=== PATIENT | female | born 1965 | race Native Hawaiian/Other Pacific Islander ===

== ENCOUNTER 2016-12-14 09:48 | Day surgery (SDC) | payer OTHER ==
[~2016-12-14] VITALS: Ht 170.2 cm; Wt 78.9 kg
[2016-12-14] VITALS (11 sets, daily range): BP systolic 108–127; BP diastolic 55–75; PULSE 92–111; RESP 11–17; O2SAT 97–100
--- NOTE | 2016-12-14 07:55 | PCM.HPANE ---
Patient Data Surgeon Admitting Provider: Attending Provider:Haroon Andrews MD Primary Care Physician:Sanchez Villanueva DO Other Provider:[facility] Anesthesia Reason for Visit Right Breast Cancer Ht/WT & BMI Height (Feet): 5 Height (Inches): 6.25 Weight (Kilograms): 80.286 Body Mass Index 28.00 Allergies Coded Allergies: adhesive tape (Verified Adverse Reaction, Severe, SWELLING,ULCERATIONS, 08/18) Past Anesthesia History Anesthesia History: Denies:: Abnormal Airway, Anesthesia Reactions, Difficult Intubation, Malignant Hyperthermia Diabetes History Hx Diabetes?: No MRSA MRSA: No Medications Hypertension Medication: No Home Meds Incl Beta Jessica: No Discontinued Reported Medications Maday Root (Maday)250 Mg Capsule1,000 Mg PO DAILY 09/12/16 Turmeric Root Extract (Turmeric)500 Mg Ngmzhst159 Mg PO DAILY 07/02/16 Lactobacillus Acidophilus (Probiotic)1 Each Capsule1 Each PO DAILY 07/02/16 Pyridoxine (Vitamin B-6)50 Mg Tusdmx039 Mg PO DAILYWD 07/02/16 History History of ENT Problems?: No Hx of Heart Problems?: No Cardiovascular History: Denies:: Congestive Heart Failure Heart Murmur Hypertension Hx of Respiratory Problem?: No Respiratory History: Denies:: Asthma Cough Dyspnea Oxygen Administration Pneumonia Tuberculosis Use of C-PAP Machine Hx Neurologic Problems?: Yes Neurological History: Positive for:: Headaches Denies:: CVA Multiple Sclerosis Parkinson's Disease Seizures Hx of GI Problems?: Yes Gastrointestinal History: Positive for:: Rectal Bleeding (recent heme positive stool;PT DECLINED F/U @ THIS TIME) Hx of Problems?: No Genitourinary History: Denies:: Kidney Stones Urinary Tract Infection Female Hx: Positive for:: Problems with Breasts? (S/P RT BREAST BX,PORT RT BREAST CA=-CURRENT PROBLEM) Denies:: Currently (S/P C/S, ELECTIVE TERMINATION) Pelvic Inflammatory (HPV+) Skin History: Denies:: History Skin Disorders? Pressure Ulcers Hx Musculoskeletal Problems?: Yes Musculoskeletal History: Positive for:: Back Injury Musculoskeletal Trauma (S/P ORIF RT RADIUS/ULNA) Hx of Psycho/Social Problems?: No Hx Surgeries?: Yes (back, c section, ORIF right forearm,RT BREAST BX,ELEC. TERMINATION) Hx Any Other Health Problems?: Yes Other History: Positive for:: Cancer (right breast) Denies:: Endocrine Disease Hospitalization Thyroid Disease Hx Diabetes: No Hx Alcohol Use: Yes (RARELY)Hx Substance Use: No Smoking Status: Never Smoker Have You Smoked inLast 12 mo: No Stop/Bang Treated for Sleep Apnea?: No Do You Have a CPAP Machine?: No S-Snoring: Do You Snore Loudly: No T-Tired: feel tired, fatigued: No O-Obsered: Observed not breath: No P-Blood Pressure: treated: No B- Body Mass Index > 35 kg/m2: No A- Age over 50: Yes N- Neck Large Circumference: No G- Gender Male: No AXEL Total Score: 1 AXEL Risk Assessment: Low Risk, <3 Yes Risk Assessment Category Category 1A: Patient has history of documented sleep apnea, and HAS NOT received any narcotic, sedative or anesthesia administration during this stay. Category 1B: Patient has history of documented sleep apnea, and HAS received any narcotic , sedative or anesthesia administration during this stay Category 2: Patient has SUSPECTED Obstructive Sleep Apnea, and HAS received any narcotic , sedative or anesthesia administration during this stay. Category 3: Patient has SUSPECTED Obstructive Sleep Apnea and HAS NOT received narcotic, sedative or anesthesia administration during this stay. Category 4: Outpatient in Procedural Areas with known sleep apnea or who screen positive for High Risk via the STOP/BANG questionnaire. Exam Exam General Appearance: Alert, Oriented X3, Cooperative, No Acute Distress HEENT/AIRWAY: MP 2 Lungs: Clear to Auscultation, Normal Air Movement Heart: Exam Unremarkable, Regular Rate/Rhythm, No Murmurs/Rubs/Gallops Plan Impression Patient chart reviewed, patient interviewed and anesthestic plan with risks, benefits, and alternatives discussed, and informed consent obtained. NPO Status: 06/11 2100 ASA Physical Status: ASA2 Mod Systemic Disease Anesthetic Plan: GA Bene/Risks/Altern/Consents: Yes HP Complete Prior to Induction: Yes Chip Key MD Dec 14, 2016 07:55
[~2016-12-14 09:48] MED LIST: CeFAZolin Inj 2 GM in IV Premix 1 EACH IV ONE
[2016-12-14] MEDS ORDERED: fentaNYL-PF 50 mCg/mL 2 mL Inj ONE (09:49)
[2016-12-14] MEDS ORDERED: Dexamethasone 4 mg/mL Inj ONE (09:49)
[2016-12-14] MEDS ORDERED: Propofol 10,000 mCg/mL 20 mL Inj ONE (09:49)
[2016-12-14] MEDS ORDERED: Ketamine 10 mg/mL 20 mL Inj ONE (09:49)
[2016-12-14] MEDS ORDERED: Ondansetron 2 mg/mL 2 mL Inj ONE (09:49)
[2016-12-14] MEDS ORDERED: CeFAZolin Inj 2 gm / 50mL D5W IV ONE (10:41)
[2016-12-14] MEDS: Lactated Ringer's 1,000 ML IV SCH ×2 (11:06→14:34)
--- NOTE | 2016-12-14 14:10 | DRSVH ---
PROCEDURE: NM SENTINEL NODE INJECTION ONLY, RIGHT BREAST RADIOPHARMACEUTICAL: 0.5 mCi Millipore filtered Tc-99m sulfur colloid. INDICATIONS: right breast cancer PROCEDURE: The indications, alternatives, benefits, risks, and complications of the procedure were explained to the patient. Written informed consent was obtained and placed in the chart. The area around the nip ple was prepped and draped in a sterile fashion. Tc-99m sulfur colloid was injected in the outer edg e of the areola in the right breast. No image was obtained. IMPRESSION: Administration of radiotracer into the right breast periareolar region for intra-operati ve sentinel lymph node localization. Dictated by: Vincent John M.D. on 12/14/2016 at 14:07 Approved by: Vincent John M.D. on 12/14/2016 at 14:08
[2016-12-14] MEDS ORDERED: Bupivacaine 0.5%/EPI 50 mL Inj INFILTRATE ONE (15:08)
[2016-12-14] MEDS ORDERED: Lactated Ringer's 1,000 ML IV SCH (15:42)
[2016-12-14] MEDS ORDERED: Lactated Ringer's 500 ML IV PRN (15:42)
[2016-12-14] MEDS ORDERED: Ondansetron 2 mg/mL 2 mL Inj IVPUSH PRN ×2 (15:45→17:15)
[2016-12-14] MEDS ORDERED: EPHEDrine Sulfate 50 mg/mL Inj IVPUSH PRN (15:45)
[2016-12-14] MEDS ORDERED: Phenylephrine 10,000 mCg/mL Inj IVPUSH PRN (15:45)
[2016-12-14] MEDS ORDERED: Dexamethasone 4 mg/mL Inj IVPUSH PRN (15:45)
[2016-12-14] MEDS ORDERED: MetoCLOpramide 5 mg/mL 2 mL Inj IVPUSH PRN ×2 (15:45→17:15)
--- NOTE | 2016-12-14 16:41 | DRSVH ---
PROCEDURE: X-RAY BREAST SPECIMEN ([id number]) INDICATIONS: BREAST SPECIMEN TECHNIQUE: Intraoperative film of the breast surgical specimen acquired. COMPARISON: [facility], POST BIOPSY CLIP PLACEMENT, 05/16/2016, 9:48. [facility] , STEREO BREAST BIOPSY W/CLIP PLACEMENT, 05/18/2016, 14:42. [facility], WIRE LOC INITIAL W/ MAMMO GUIDANCE RT, 12/14/2016, 9:02. FINDINGS: 2 views of the surgical specimen demonstrates the 2 localization wires as well as the 2 targeted biop sy clips. A few small microcalcifications are also demonstrated within the specimen. IMPRESSION: 1. Biopsy specimen contains the 2 localization wires as well as the 2 targeted biopsy clips. Dictated by: Connor Ford M.D. on 12/14/2016 at 16:33 Approved by: Connor Ford M.D. on 12/14/2016 at 16:35
--- NOTE | 2016-12-14 17:14 | PCM.DISURG ---
Surgical Discharge Instruction Date of Service Dec 14, 2016 Dates of Hospitalization Date of Hospital Admission Providers Admitting Physician: Primary Care Physician: Sanchez Villanueva DO Attending Physician: Haroon Andrews MD Discharge Diagnosis Discharge Diagnosis Right breast cancer Diet Discharge Diet: No restrictions Activity Discharge Activity-General: No restrictions, Activity as pain allows Dressing and Incisional Care Dressing Instructions: Dermabond will peel off gradually Hygiene: May shower Follow Up Plan Follow Up Plan With Dr. Andrews in surgery clinic in 2 weeks. Call your provider for: Fever (over 101.5), Discharge @ incision, pus discharge Haroon Andrews MD Dec 14, 2016 17:14
[2016-12-14] MEDS ORDERED: oxyCODONE-Acetamin 5-325 mg Tablet PO PRN (17:15)
[2016-12-14] MEDS: HYDROmorphone 1 mg/mL Inj IVPUSH PRN ×2 (17:20→17:25)
[2016-12-14] MEDS: fentaNYL-PF 50 mCg/mL 2 mL Inj IVPUSH PRN ×2 (17:24→17:31)
--- NOTE | 2016-12-14 17:27 | PCM.SURGOP ---
Surgical Operative Report Date of Service: Dec 14, 2016 Pre Operative Diagnosis Right breast cancer Post Operative Diagnosis Same Procedure: Wire localized right breast quadrantectomy with racquet mastopexy, right axillary sentinel lymph node biopsy, adjacent tissue rearrangement less than 30 cm Surgeon and Taxi Truck Driver: Surgeon: Haroon Andrews MD Assistants: Phoebe Black PA-C Indication for Procedure 51-year-old woman who was diagnosed in May 2016 with clinical T2 N1 right breast invasive ductal carcinoma. Her original imaging studies showed that the majority of the right lateral breast was involved. She underwent a total of 3 biopsies at the outset of her treatment. 2 of the biopsies showed the invasive cancer, and the third biopsy showed a blood clot, but no breast tissue, so the third clip in the breast did not correspond to a known cancer. She was treated with neoadjuvant chemotherapy with a good clinical response. Her repeat breast MRI showed that the prior clumped enhancement in the lower outer quadrant of the right breast had resolved. Clumped enhancement in the upper outer quadrant of the right breast was improved but still present. After discussion of risks and benefits, she agreed to proceed with right breast quadrantectomy with racquet mastopexy and sentinel lymph node biopsy. Findings: There were 3 sentinel nodes. The first sentinel node had an ex vivo gamma count of 1899, the second sentinel node had a count of 2268, and the third sentinel node had a count of 154. The background count was 7. Procedure Details Preoperatively, the patient underwent 2 separate wire placements in the [facility]. The third clip was not localized, again because it did not correspond to known tumor. She then underwent right breast injection of the radiotracer for sentinel node identification. She was brought to the operating room where she underwent smooth induction of general anesthesia. Methylene blue was injected into the right breast periareolar subdermal tissue. The breast was massaged for several minutes. She was then prepped and draped in wide sterile fashion. A procedural pause was performed according to the SCOAP checklist, and all were found to be in agreement. The nipple was sized at 50. A skin incision was drawn for racquet mastopexy with both lateral wires been encompassed into the triangular lateral excision. The incision extended to the areolar border, and then a circular incision was made around the areola. Skin flaps were raised superiorly and inferiorly. Dissection was then carried down to the chest wall with electrocautery. The entire upper outer quadrant of the right breast was excised. The breast tissue was then elevated off the underlying chest wall, and pectoralis fascia was resected en bloc. The right breast tissue was oriented with suture. A specimen radiograph was obtained, confirming that both wires and both clips had been localized successfully. The tissue was sent for permanent pathology. Margins of dissection were marked with medium hemoclips around the borders of the cavity. Right axillary sentinel lymph node biopsy was then performed through the same incision. The axillary fascia was incised. Using the gamma probe as a guide, the various areas of maximum radiotracer activity were identified, and dissected free from the surrounding tissue. The first 2 sentinel nodes had radiotracer signal, as well as methylene blue dye uptake. The first sentinel node had a count of 1899. The second sentinel node had a count of 2268. There was a third node with discrete radiotracer activity adjacent to that tissue, but it did not have blue dye uptake. Ex vivo, its count was 154. The background count after excision was 3. All 3 of the sentinel nodes were soft, and normal in size. They were sent for permanent pathology. Next, breast parenchymal flaps were elevated from the right superior breast in the right inferior breast by grasping the breast tissue with Bruce clamps and elevating it off the underlying chest wall. This was done until the breast parenchymal flaps were able to be reapproximated in the new upper outer quadrant. The breast tissue was closed with interrupted 3-0 Vicryl sutures in layers. This resulted in excellent filling of the upper outer quadrant contour defect. Volume of adjacent tissue transfer was approximately 30 cm. Next, a separate circular incision was made around the prior areolar skin incision to allow repositioning of the areolar complex central over the breast mound. That skin was excised by de-epithelializing with a 10 blade scalpel, and the skin was sent for permanent pathology. A running subdermal 4- 0 Supramid suture was then used around the new circular periareolar incision, to resize the nipple to a 50 size. The nipple remained well-perfused. The skin incision was then closed using interrupted deep dermal 3-0 Vicryl suture, and running 4-0 Vicryl subcuticular stitch. Dermabond was applied to the skin as a dressing. At the end the case all needle and sponge counts were correct 2. The patient was awakened from anesthesia without difficulty, and taken to the recovery room in satisfactory condition, having tolerated the procedure well. Complications There were no periprocedural complications identified. Surgical Specimen Removed: Yes Specimen sent to Pathology: Yes Surgical Specimen description: Right breast tissue. Right axillary sentinel node #1. Right axilla sentinel node #2. Right axillary sentinel node #3. Right breast periareolar skin. Anesthetic Plan: GA Grafts, Implants: None Output, Estimated Blood Loss: 50 Blood Administration during grigsby: No Drains: None Catheters: None copies to: Hunter May MD; Krishna Villanueva DO; Sanchez Villanueva Joshua D MD Dec 14, 2016 17:27
--- NOTE | 2016-12-15 10:38 | PCM.ANEP2 ---
Post Anesthesia Evaluation ASA/CMS Post Anesthesia VS in Patient's Normal Range?: Yes Resp Stable; Airway Patent?: Yes CV Function & Hydration Stable: Yes Mental Status Recovered?: Yes Pain control Satisfactory?: Yes N/V Control Satisfactory?: Yes Chip Key MD Dec 15, 2016 10:38
--- NOTE | 2016-12-15 10:38 | PCM.ANEP1 ---
Post Anesthesia Phase 1 PACU Phase 1 Assessment Date of Service: Dec 14, 2016 Anesthetic Administered: GA Level of Alertness: Awake, talking DOHERTY's with Equal Strength: Yes Pain: No Nausea or Vomiting: No Oxygen Delivery: Simple Mask Lungs: Clear to Auscultation, Normal Air Movement Chip Key MD Dec 15, 2016 10:38
--- NOTE | 2016-12-21 15:15 | PATH ---
SURGICAL PATHOLOGY Attending Physician:Neo Watts CASE STATUS: Signed Out PATIENT NAME: NOE CHAMBERS PID: [id number] : 1965 DATE COLLECTED:12/14/2016 00:00 SPECIMEN: 1: Breast, Simple Mastectomy (lymph nodes submitted separately) 2: [place] Lymph Node 3: [place] Lymph Node 4: [place] Lymph Node 5: Skin, biopsy CLINICAL HISTORY: RIGHT BREAST CANCER 1). RIGHT BREAST TISSUE UPPER OUTER QUADRANT, SHORT SUPERIOR, LONG LATERAL OUT 15:35 TIF 15:41 2). RIGHT AXILLARY SENTINEL NODE #1 OUT 15:50 TIF 16:23 3). RIGHT AXILLARY SENTINEL NODE #2 OUT 16:00 TIF 16:23 4). RIGHT AXILLARY SENTINEL NODE #3 OUT 16:18 TIF 16:23 5). RIGHT BREAST MORGAN-AREOLAR SKIN OUT 16:30 TIF 16:32 FINAL DIAGNOSIS: Breast, Right, Upper Outer Quadrantectomy with guidewire localization: Invasive mammary carcinoma present as two masses with the following characteristics: Mass 1 Tumor size: 18 mm Tumor type: Infiltrating ductal carcinoma. Histologic grade: Intermediate grade. [place] grade: 2 of 3 Tubule score: 3 Nuclear score: 2 Mitotic score. 1 Resection margins: Negative for tumor. Anterior: Greater than 10 mm Posterior: 5 mm Lateral: Greater than 10 mm Medial: Greater than 10 mm Superior: Greater than 10 mm Inferior: Greater than 10 mm Mass 2 Tumor size: 4 mm Tumor type: Infiltrating ductal carcinoma. Histologic grade: Intermediate grade. [place] grade: 2 of 3 Tubule score: 3 Nuclear score: 2 Mitotic score. 1 Resection margins: Negative for tumor. Anterior: Greater than 10 mm Posterior: 8 mm Lateral: Greater than 10 mm Medial: Greater than 10 mm Superior: Greater than 10 mm Inferior: Greater than 10 mm In situ carcinoma: Diffusely present throughout a region that measures 7.5 x 5.5 x 2.5 cm, solid type with lobular involvement, nuclear grade 2 of 3, no necrosis identified. Resection margins for in situ carcinoma: Negative for tumor, but close at the medial and posterior margins. Anterior: 5 mm Posterior: less than 1 mm Lateral: Greater than 10 mm Medial: less than 1 mm Superior: Greater than 10 mm Inferior: Greater than 10 mm Lymphovascular invasion: Not identified. Hormone receptor studies: Performed on this patient's previous image-guided needle core biopsies and demonstrate the following by written report: ([facility] [id number]; 05/16/2016): ER: Positive (90% of tumor nuclei, intermediate to strong staining intensity). [place]: Positive (80-90% of tumor nuclei, intermediate to strong staining intensity). HER2: Negative at 1+. ([facility] [id number]; 05/18/2016): ER: Positive (95% of tumor nuclei, strong staining intensity). [place]: Positive (95% of tumor nuclei, strong staining intensity). HER2: Negative by FISH. Additional findings: Changes consistent with previous instrumentation; fibroadenomatous and fibrocystic changes Lymph nodes: [place] lymph nodes submitted (please see parts 2, 3, and 4, below). Number of positive lymph nodes: 0 Total number of lymph nodes examined: 3 Number of sentinel nodes: 3 AJCC (7th Edition) Classification: ypT1c (2) pN0(i-) Surgical procedure: Wire localized quadrantectomy Lymph node sampling: Performed Laterality. Right 2. Right Axillary [place] Node #1, Excision: One lymph node negative for metastatic carcinoma by immunohistochemistry studies (0/1). 3. Right Axillary [place] Node #2, Excision: One lymph node negative for metastatic carcinoma by immunohistochemistry studies (0/1). 4. Right Axillary [place] Node #3, Excision: One lymph node negative for metastatic carcinoma by immunohistochemistry studies (0/1). 5. Right Breast Periareolar Skin, Excision: Negative for tumor. ICD10: C50.9 NOTE: The neoplasms are immunopositive for cytokeratin (LILIA) and E-cadherin (the larger tumor is also immunopositive for ROYAL-3) which supports a diagnosis of infiltrating ductal carcinoma and mitigates against a diagnosis of lobular carcinoma. Other regions concerning for possible microinvasion are immunopositive for both p63 and smooth muscle myosin which supports the absence of invasion at these foci. Cytokeratin studies are negative in the three excised sentinel lymph nodes. IHC tissue controls stained appropriately. Slides from this case have been reviewed by a second pathologist. GROSS DESCRIPTION: The specimens are received in formalin, labeled with the patient's name, and sublabeled as the following: (1) right breast tissue, upper outer quadrant; (2) right axillary sentinel node #1; (3) right axillary sentinel node #2; (4) right axillary sentinel node #3; (5) right breast periareolar skin. (1) The specimen consists of a piece of right breast tissue (3.5 cm AP, 9.5 cm SI, 12.3 cm ML) partially covered by skin (up to 3.0 cm SI, up to 9.2 cm ML). The specimen is oriented with 2 black sutures (short-superior, long-lateral). 2 localization wires are present. The specimen is serially sectioned ML into 32 slices within medial and lateral resection margin is a slices #1 and #32 respectively. The breast tissue is fatty and contains an ill-defined fibrous gritty area (7.5 x 5.5 x 2.5 cm) within slices #2-#22. This area is 1.8 cm from the skin surface, 0.8 cm from the posterior, 3.0 cm from the superior, 1.2 cm from the inferior, 0.3 cm from the medial, and 3.8 cm from the lateral resection margins. No nodules, masses or scirrhous areas are identified. The skin is savage-white and unremarkable. Ink code: purple-anterior; yellow-posterior; black-superior; orange-inferior; green-medial; blue-lateral. Section code: (1A) medial resection margin, perpendicularly sectioned, entirely submitted; (1B) slice #2, service liaison representative; (1C) slice #3, service liaison representative; (1D) slice #4, service liaison representative; (1E) slice #5, service liaison representative; (1F) slice #6, service liaison representative; (1G) slice #7, service liaison representative; (1H-1I) slice #8, service liaison representative submitted SI; (1J-1K) slice #9, service liaison representative submitted SI; (1L-1Q) slice #10, entirely submitted; (1R-1S) slice #11, service liaison representative submitted SI; (1T) slice #12, service liaison representative; (1U-1V) slice #13, service liaison representative submitted SI; (1W, 1X) slice #14, service liaison representative submitted SI; (1Y-1Z) slice #15, service liaison representative submitted SI; (1AA) slice #16, service liaison representative; (1BB-1CC) slice #17, service liaison representative submitted AP; (1DD-1EE) slice #18, service liaison representative submitted AP; (1FF) slice #19, service liaison representative; (1GG) slice #20, service liaison representative; (1HH) slice #21, service liaison representative; (1II, 1JJ) slice #22, service liaison representative; (1KK) slice #23, tissue adjacent to fibrous area, service liaison representative; (1LL) lateral resection margin, perpendicularly sectioned, entirely submitted. Note: This specimen was reviewed by Dr. Yisel Deutsch. (2) The specimen consists of a blue stained lymph node (1.3 x 0.8 x 0.7 cm). Section code: (2A) one lymph node serially sectioned. Specimen entirely submitted. (3) The specimen consists of a blue stained lymph node (1.5 x 1.0 x 0.7 cm). Section code: (3A) one lymph node, serially sectioned. Specimen entirely submitted. (4) The specimen consists of a lymph node (1.4 x 0.9 x 0.6 cm). Section code: (4A) one lymph node, celiac sectioned. Specimen entirely submitted. (5) The specimen consists of an unoriented piece of skin (12.1 x 1.6 x 0.2 cm). The skin is savage-white and partially stained blue. No nodules, masses or lesions are identified. Ink code: black-resection margin. Section code: (5A) skin, serially sectioned, service liaison representative. Note: Approximate total fixation time in formalin-38 hours and 30 minutes calculated using a collection date of December 14, 2016 with times in fixative [id number]. 12/15/16 JM MICRO DESCRIPTION: IMMUNOHISTOCHEMISTRY Block 1BB: Smooth muscle myosin heavy chain:Present around region of interest. p63:Present around region of interest. Block 1EE: LILIA:Positive in region of interest. E-cadherin:Positive in region of interest. GATA3:Positive in region of interest. Block 1GG: LILIA:Positive in region of interest. E-cadherin:Positive in region of interest. Blocks 2A, 3A and 4A: LILIA: Negative. These tests was developed and their performance characteristics determined by [employer]. They have not been cleared or approved by the U.S. Food and Drug Administration. The FDA has determined that such clearance or approval is not necessary. These tests are used for clinical purposes and should not be regarded as investigational or for research. ICD-9 CODES: CPT CODES: 1: 18199, 82264, 54201, 91137, 70831, 13575, 99418, 78481 2: 58527 3: 92966 4: 65799 Electronically Signed Out Lexi Hernadez MD [facility] [address], [place] [address] Technical component performed at [facility], [address], [place], [address]
== END 2016-12-14 23:59 | disposition home or self-care (01) ==
LOC: SAS 09:48
PROVIDERS: ATTEND Student in an Organized Health Care Education/Training Program
DX: C50.411 Malignant neoplasm of upper-outer quadrant of right female breast (principal); Z92.21 Personal history of antineoplastic chemotherapy
CPT/HCPCS: 14001; 19301; 19316; 38525; 38792; 76098; A9541; J0690; J1100; J1170; J1885; J2250; J2405; J3010; J7120